=== PATIENT | female | born 1975 | race Caucasian/White ===

== ENCOUNTER → 2017-03-04 | Outpatient (CLI) | payer OTHER | LOC: FIMAGING 09:10 | PROVIDERS: ATTEND Obstetrics & Gynecology | DX: Z12.31 Encounter for screening mammogram for malignant neoplasm of breast (principal) | CPT/HCPCS: G0202 ==

== ENCOUNTER → 2017-08-02 | Outpatient (CLI) | payer OTHER | LOC: BMCIMAGING 11:21 | PROVIDERS: ATTEND Internal Medicine Rheumatology | DX: M79.642 Pain in left hand (principal); M25.511 Pain in right shoulder ==

== ENCOUNTER → 2018-03-20 | Outpatient (CLI) | payer OTHER | LOC: FIMAGING 12:58 | PROVIDERS: ATTEND Obstetrics & Gynecology | DX: N63.23 Unspecified lump in the left breast, lower outer quadrant (principal) ==

== ENCOUNTER → 2018-03-28 | Outpatient (CLI) | payer OTHER ==
[~2018-03-28] MED LIST: BUPIVACAINE 0.5% 30 ML SDV ONE; LIDOCAINE 1% 300 MG/30 ML SDV ONE; THROMBIN (BOVINE) 5,000 UNIT VIAL TP ONE
== END ==
LOC: FIMAGING 07:23
PROVIDERS: ATTEND Obstetrics & Gynecology
DX: N64.1 Fat necrosis of breast (principal); S20.152A Superficial foreign body of breast, left breast, initial encounter; N64.89 Other specified disorders of breast

== ENCOUNTER → 2018-09-18 | Outpatient (CLI) | payer OTHER | LOC: FIMAGING 09:36 | PROVIDERS: ATTEND Obstetrics & Gynecology | DX: R92.8 Other abnormal and inconclusive findings on diagnostic imaging of breast (principal) ==